=== PATIENT | female | born 1995 | race Caucasian/White ===

== ENCOUNTER 2024-06-06 16:08 | Emergency (ER) | payer OTHER ==
[2024-06-06 16:54] LABS: Specific Gravity 1.008 (1.005-1.030)
[2024-06-06 16:56] LABS: Specific Gravity 1.008 (1.005-1.030); Sqamous Epithelial <5 /HPF (None Seen); Urine Bacteria None Seen /HPF (<20); Urine Bilirubin NEGATIVE (Negative); Urine Blood Negative (Negative); Urine Clarity Clear (Clear); Urine Color Colorless (Yellow); Urine Culture Reflex Order NOT NEEDED; Urine Glucose NEGATIVE (Negative); Urine Ketones NEGATIVE (Negative); Urine Microscopic Reflex YN ORDER UMIC; Urine Mucus Slight /HPF (None Seen); Urine Nitrite NEGATIVE (Negative); Urine Protein NEGATIVE (Negative); Urine RBC <5 /HPF (None Seen); Urine Urobilinogen Normal (Normal); Urine WBC <5 /HPF (<5)
--- NOTE | 2024-06-06 17:06 | RAD REPORT ---
EXAM DESCRIPTION: US - 1St Trimest Single 1St Fetus - 06/06/2024 4:55 pm CLINICAL HISTORY: ABD CRAMPING, COMPARISON: No comparisons FINDINGS: A single gestational sac is seen within the uterus. The shape of the sac is within normal limits for gestational age. Within the sac is a single pole with crown-rump length of 4.6 cm, c orrelating to estimated gestational age of 11 weeks 3 days. Estimated date of delivery is 12/21/2014. Heart rate is 163 BPM. Anterior placenta noted. Nonvisualized ovaries. Adnexae gross unremarkable. IMPRESSION: Single live early intrauterine gestation with estimated gestational age of 11 weeks 3 da ys, SABA 12/21/2024. No acute abnormality is seen.
--- NOTE | 2024-06-06 17:06 | RAD REPORT ---
EXAM DESCRIPTION: US - Renal Ultrasound-Limited - 06/06/2024 4:55 pm CLINICAL HISTORY: left flank pain, kidney eval;Lower back pain COMPARISON: No comparisons FINDINGS: The right kidney was not requested imaging. The left kidney measures 11.8 x 5.4 x 5.2 cm. No hydronephrosis, focal mass or perinephric fluid. The urinary bladder is incompletely distended without gross abnormality seen. IMPRESSION: Negative left kidney sonogram.
[2024-06-06 18:06] LABS: Absolute Basophils 0.1 K/uL (0-0.5); Absolute Eosinophils 0.1 K/uL (0-0.5); Absolute Lymphocytes (CBC) 1.8 K/uL (0.7-4.9); Absolute Monocytes 0.6 K/uL (0.1-1.3); Absolute Neutrophil 10.8 K/uL (1.8-8.0); Basophils % 0.5 % (0-1.3); Eosinophils % 0.6 % (0-4.4); Hemoglobin 12.5 g/dL (12.0-15.0); Lymphocytes % 13.3 % (15.3-44.8); MCHC 32.9 g/dL (32.0-36.0); MCV 75.9 fL (80-100); MPV 8.3 fL (7.6-11.3); Monocytes % 4.6 % (3.3-12.3); Platelets 262 thou/uL (152-406); Red Cell Distribution Width 17.4 % (12.1-15.2)
[2024-06-06 18:14] LABS: Anion Gap 9.4 mEq/L (5.0-15.0); Potassium 3.4 mEq/L (3.5-5.1)
--- NOTE | 2024-06-06 19:10 | EDPHYS ---
Physician Documentation [facility] Name: Neyda Richards Age: 28 yrs Sex: Female : 1995 Arrival Date: 06/06/2024 Time: 16:08 Bed 18 Private MD: ED Physician Chris Burnett HPI: 06/06 16:35 This 28 yrs old Female presents to ER via Ambulatory with complaints of Low Back Pain. sb4 16:35 The patient presents to the emergency department with urinary symptoms, urinary sb4 retention. The estimated gestational age is 12 weeks. course: care: private OB physician, Leakage of Fluid: none appreciated, Ultrasound: the patient had an ultrasound, which was normal, Risk/complications: no obvious risks or complications are appreciated. patient states she woke up from a nap this afternoon, went to the bathroom, had a sharp pain in low back and felt she was unable to fully empty her bladder. states the pain in her back has improved but still wanted to be checked. denies any burning with urination, foul smelling urine, dark urine, abdominal cramping, vaginal bleeding. 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 - Infectious Disease History:: Denies. - Social history:: Smoking status: Patient denies any tobacco usage or history of. ROS: 16:35 Constitutional: Negative for fever, chills, and weight loss, sb4 16:35 : Positive for flank pain, small amounts, 16:35 All other systems are negative, Exam: 16:35 Constitutional: This is a well developed, well nourished patient who is awake, alert, sb4 and in no acute distress. Head/Face: Normocephalic, atraumatic. Eyes: Extra-ocular motions intact. Periorbital areas with no swelling, redness, or edema. ENT: Mucous membranes moist. Cardiovascular: Regular rate and rhythm with a normal S1 and S2. Respiratory: Lungs have equal breath sounds bilaterally, clear to auscultation and percussion. No rales, rhonchi or wheezes noted. No increased work of breathing, no retractions or nasal flaring. Abdomen/GI: Soft, non-tender, no distension. Skin: Warm, dry with normal turgor. Normal color with no rashes, no lesions, and no evidence of cellulitis. 16:35 Back: CVA tenderness, that is moderate, is noted on the left, Vital Signs: 16:15 BP 135 / 77; Pulse 93; Resp 16; Temp 97.8; Pulse Ox 100% ; Weight 102.51 kg; Height 5 ll1 ft. 9 in. ; Pain 5/10; 19:26 BP 132 / 74; Pulse 88; Resp 17; Temp 97.8; Pulse Ox 100% ; cp4 16:15 Body Mass Index 33.37 (102.51 kg, 175.26 cm) ll1 16:15 Pain Scale: Adult ll1 MDM: 16:16 Patient medically screened. sb4 19:44 Data reviewed: vital signs, nurses notes, lab test result(s), radiologic studies, and sb4 as a result, I will discharge patient. Counseling: I had a detailed discussion with the patient and/or guardian regarding the historical points, exam findings, and any diagnostic results supporting the discharge/admit diagnosis, lab results, radiology results, the need for outpatient follow up, an OB/Gyne specialist, to return to the emergency department if symptoms worsen or persist or if there are any questions or concerns that arise at home. 06/06 16:26 Order name: Basic Metabolic Panel; Complete Time: 18:17 sb4 06/06 16:26 Order name: CBC with Diff; Complete Time: 18:12 sb4 06/06 16:26 Order name: Test, Urine; Complete Time: 17:04 sb4 06/06 16:26 Order name: Urinalysis w/ reflexes; Complete Time: 17:04 sb4 06/06 16:26 Order name: US Rp Exam Limited sb4 06/06 16:57 Order name: 1St Trimest Single 1St Fetus EDDC 06/06 16:26 Order name: IV Saline Lock; Complete Time: 18:31 sb4 06/06 16:26 Order name: Labs collected and sent; Complete Time: 18:31 sb4 Administered Medications: No medications were administered Disposition: 20:03 Co-signature as Attending Physician, Chris Burnett MD I reviewed the patient's care rn provided by the Advanced Practice Provider and agree with the diagnosis and treatment plan. Disposition Summary: 06/06/24 19:09 Discharge Ordered Notes: Location: Home sb4 Problem: new sb4 Symptoms: have improved sb4 Condition: Stable sb4 Diagnosis - Low back pain sb4 - 12 weeks gestation of sb4 Followup: sb4 - With: Private Physician - When: 2 - 3 days - Reason: Recheck today's complaints, Re-evaluation by your physician Discharge Instructions: - Discharge Summary Sheet sb4 - Back Pain in sb4 Forms: - Patient Portal Instructions sb4 - Leadership Thank You Letter sb4 Signatures: Dispatcher [employer] Chris Jc MD MD rn Lewis, Lynsay, RN RN ll1 Valerie Saavedra, PA-C PA-C sb4 Karolina Adler cp4 Corrections: (The following items were deleted from the chart) 16:57 16:26 OB Limited+US.RAD.BRZ ordered. MORE AGUERO
--- NOTE | 2024-06-06 19:10 | ER ---
Nurse's Notes [facility] Name: Neyda Richards Age: 28 yrs Sex: Female : 1995 Arrival Date: 06/06/2024 Time: 16:08 Bed 18 Private MD: Diagnosis: Low back pain;12 weeks gestation of Presentation: 06/06 16:15 Chief complaint: Patient states: Low back pain started after taking a nap today. ll1 Couldn't empty bladder fully, nausea, and near syncope feeling . 12 weeks G2, P0. Coronavirus screen: Client denies travel out of the [place] in the last 14 days. At this time, the client does not indicate any symptoms associated with coronavirus-19. Ebola Screen: Patient denies travel to an Ebola-affected area in the 21 days before illness onset. Initial Sepsis Screen: Does the patient meet any 2 criteria? No. Patient's initial sepsis screen is negative. Does the patient have a suspected source of infection? No. Patient's initial sepsis screen is negative. Risk Assessment: Do you want to hurt yourself or someone else? Patient reports no desire to harm self or others. Onset of symptoms was June 06, 2024. 16:15 Method Of Arrival: Ambulatory ll1 16:15 Acuity: RIKA 3 ll1 Triage Assessment: 16:18 General: Appears uncomfortable, Behavior is calm, cooperative, appropriate for age. ll1 General: Reports 12 weeks . Pain: Complains of pain in L back Pain currently is 5 out of 10 on a pain scale. Neuro: Reports a syncopal episode weakness. : Reports couldn't empty bladder fully. Musculoskeletal: Reports pain in L lower back. 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 - Infectious Disease History:: Denies. - Social history:: Smoking status: Patient denies any tobacco usage or history of. Screenin:47 [facility] ED Fall Risk Assessment (Adult) History of falling in the last 3 months, kc6 including since admission No falls in past 3 months (0 pts) Confusion or Disorientation No (0 pts) Intoxicated or Sedated No (0 pts) Impaired Gait No (0 pts) Mobility Assist Device Used No (0 pt) Altered Elimination No (0 pt) Score/Fall Risk Level 0 - 2 = Low Risk Oriented to surroundings. Abuse screen: Denies threats or abuse. Denies injuries from another. Nutritional screening: No deficits noted. Tuberculosis screening: No symptoms or risk factors identified. Assessment: 16:47 General: Appears in no apparent distress. comfortable, well groomed, well developed, kc6 Behavior is calm, cooperative, appropriate for age. Pain: Complains of pain in back. Neuro: Level of Consciousness is awake, alert, obeys commands, Oriented to person, place, time, situation, Appropriate for age Reports dizziness. Cardiovascular: Capillary refill < 3 seconds. Respiratory: Airway is patent Trachea midline Respiratory effort is even, unlabored, Respiratory pattern is regular, symmetrical. GI: Reports nausea, Patient currently denies abdominal pain, diarrhea, vomiting. : Urine is clear, Reports feeling like she can't empty her bladder fully. EENT: No signs and/or symptoms were reported regarding the EENT system. Derm: No signs and/or symptoms reported regarding the dermatologic system. Skin is intact, is healthy with good turgor, Skin is dry, Skin is pale, Skin temperature is warm. Musculoskeletal: No signs and/or symptoms reported regarding the musculoskeletal system. Circulation, motion, and sensation intact. Capillary refill < 3 seconds, Range of motion: intact in all extremities. 17:47 Reassessment: Patient appears in no apparent distress at this time. No changes from kc6 previously documented assessment. Patient and/or family updated on plan of care and expected duration. Pain level reassessed. Patient is alert, oriented x 3, equal unlabored respirations, skin warm/dry/pink. 18:35 Reassessment: Patient appears in no apparent distress at this time. No changes from kc6 previously documented assessment. Patient and/or family updated on plan of care and expected duration. Pain level reassessed. Patient is alert, oriented x 3, equal unlabored respirations, skin warm/dry/pink. Vital Signs: 16:15 BP 135 / 77; Pulse 93; Resp 16; Temp 97.8; Pulse Ox 100% ; Weight 102.51 kg; Height 5 ll1 ft. 9 in. ; Pain 5/10; 19:26 BP 132 / 74; Pulse 88; Resp 17; Temp 97.8; Pulse Ox 100% ; cp4 16:15 Body Mass Index 33.37 (102.51 kg, 175.26 cm) ll1 16:15 Pain Scale: Adult ll1 ED Course: 16:14 Patient arrived in ED. ra3 16:14 Arm band placed on. ll1 16:16 Valerie Saavedra PA-C is PHCP. sb4 16:16 Chris Burnett MD is Attending Physician. sb4 16:18 Triage completed. ll1 16:22 Lorena Stubbs, NAHUM is Primary Nurse. kc6 16:43 Test, Urine Sent. kc6 16:43 Urinalysis w/ reflexes Sent. kc6 16:47 Patient has correct armband on for positive identification. Bed in low position. Call kc6 light in reach. Side rails up X 1. Adult w/ patient. Pulse ox on. NIBP on. Door closed. Noise minimized. Lights dimmed. Warm blanket given. Pillow given. 16:57 US Rp Exam Limited In Process Unspecified. EDMS 16:57 1St Trimest Single 1St Fetus In Process Unspecified. EDMS 17:32 Missed attempt(s): 22 gauge in left antecubital area. Missed attempt(s): 20 gauge in kc6 left upper arm. 17:47 Initial lab(s) drawn, by nj, sent to lab. Inserted saline lock: 24 gauge in left mb9 antecubital area, using aseptic technique. Blood collected. Flushed with 10 mL NS. 19:27 Provided Education on: back pain in . cp4 19:27 No provider procedures requiring assistance completed. intact, bleeding controlled, No cp4 redness/swelling at site. Pressure dressing applied. Administered Medications: No medications were administered Medication: 19:27 VIS not applicable for this client. cp4 Outcome: 19:09 Discharge ordered by . sb4 19:27 Discharged to home ambulatory, cp4 19:27 Condition: stable 19:27 Discharge instructions given to patient, Instructed on discharge instructions, follow up and referral plans. Demonstrated understanding of instructions, follow-up care, 19:30 Patient left the ED. cp4 Signatures: Dispatcher [employer] Peter Harper RN RN ll1 Lorena Stubbs RN RN kc6 Valerie Saavedra PA-C PA-C sb4 Pablito, Linda Aaron RN RN mb9 Karolina Adler cp4 Hailey Alba ra3
[2024-06-06 20:17] VITALS: TEMP 97.8; O2SAT 100
[2024-06-06 20:18] VITALS: BP 132/74
== END 2024-06-06 19:30 | disposition home or self-care (01) ==
LOC: ER 16:08
DX: O26.891 Other specified pregnancy related conditions, first trimester (principal); M54.50 Low back pain, unspecified; Z3A.12 12 weeks gestation of pregnancy
CPT/HCPCS: 36415; 76775; 76801; 80048; 81001; 81025; 85025

== ENCOUNTER 2024-06-26 00:50 | Emergency (ER) | payer OTHER ==
--- OUTSIDE RECORDS SUMMARY | 2024-06-26 00:52 | XMS REPORT | Continuity of Care Document ---
Author Name Unknown Address [address] [place] [address] [facility] Address [address] [place] [address] Care Team Providers Care Stocklayer Name Role Phone [id number] Attending Clinician Unavailable PAT LOIAZA Attending Clinician Unavailable ZHAO TRAN Attending Clinician Unavailable [id number] Attending Clinician Unavailable MD AVELINA Attending Clinician Unavailab le [id number] Attending Clinician Unavailable Payers Payer Name Policy Type Policy Number Effective Date Expirati on Date Source [facility] OTIS HERNANDEZ COPAY FOCUS 9 [id number] 2024 00:00:00 Problems Condition Name Condition Details Condition Category Status Onset Date Resolution Date Last Treatment Date Treating Clinician Comments Source Encounter for supervisio n of other normal , first trimester ([facility]) Encounter for supervisio n of other normal , first trimester ([facility]) Disease Active 8-08 00:00: 00 Overview: Formattin g of this note might be different from the original. - h/o SAb x 1- support person: Mahin- sex of fetus:- pedi: Katarzyna vieira Allergies, Adverse Reactions, Alerts Allergy Name Allergy Type Status Severity Reaction(s) Onset Date Inactive Date Treating Clinician Comments Source Sulfamet hoxazole -Trimeth oprim Drug Allergy Active Hives 7-15 00:00: 00 Katarzyna vieira Tomato Propensi ty to adverse reaction s Active Nausea and Vomiting 2024-0 7-15 00:00: 00 Katarzyna Zavalaa l Social History Social Habit Start Date Stop Date Quantity Comments Source ASSERTION 2024-03-28 00:00:00 Katarzyna Tucker - External Sexual orientation Sergey jay Caitlin - External Alcoholic beverage intake 2024-06-08 00:00:00 2024-06-08 00:00:00 Lifetime non-drinker (finding) Katarzyna Tucker - External Tobacco use and exposure 2024-05-10 00:00:00 2024-05-10 00:00:00 Smokeless tobacco non-user Katarzyna Tucker - External History of Social function 2024-05-10 00:00:00 2024-05-10 00:00:00 Katarzyna Tucker - External Education 2024-05-10 00:00:00 2024-05-10 00:00:00 22 Katarzyna Tucker - External Sex [birth year] at 1995 00:00:00 1995 00:00:00 Katarzyna Tucker - External Smoking Status Start Date Stop Date Source Never smoked tobacco Katarzyna Tucker - External Medications Ordered Medication Name Filled Medication Name Start Date Stop Date Current Medication? Ordering Clinician Indication Dosage Frequency Signature (SIG) Comments Components Source Vit-Fe Fumarate-FA ( VITAMINS OR) 06-08 13:45: 54 Yes Take by mouth. Katarzyna Zavalaa l Vit-Fe Fumarate-FA ( VITAMINS OR) 05-17 14:29: 04 Yes Take by mouth. Katarzyna Zavalaa l Vit-Fe Fumarate-FA ( VITAMINS OR) 05-10 10:48: 21 Yes Take by mouth. Katarzyna Stout Externa l Vital Signs Vital Name Observation Time Observation Value Comments S ource Systolic blood pressure 2024-06-08 18:51:00 126 mm[Hg] Katarzyna Hidalgo ld - External Diastolic blood pressure 2024-06-08 18:51:00 70 mm[Hg] Katarzyna Hidalgo ld - External Heart rate 2024-06-08 18:51:00 80 /min Hebert Tucker - External Body weight 2024-06-08 18:51:00 102.694 kg Shasha ey Seybold - External BMI 2024-06-08 18:51:00 33.43 kg/m2 Shasha ey Seybold - External Systolic blood pressure 2024-05-17 20:24:00 116 mm[Hg] Katarzyna Vasquezo ld - External Diastolic blood pressure 2024-05-17 20:24:00 72 mm[Hg] Katarzyna Vasquezo ld - External Heart rate 2024-05-17 20:24:00 78 /min Kelse y Seybold - External Body weight 2024-05-17 20:24:00 102.059 kg Shasha ey Seybold - External BMI 2024-05-17 20:24:00 33.23 kg/m2 Shasha ey Seybold - External Body height 2024-05-10 16:16:00 175.3 cm Shasha ey Seybold - External Encounters Start Date/Time End Date/Time Encounter Type Ad[facility] Encounter ID Source 2024-10-05 10:00:00 2024-10-05 10:00:00 Outpatient [id number] KATARZYNA COLÓN [id number] [facility] 2024-07-05 09:45:00 2024-07-05 09:45:00 Outpatient PAT LOAIZA [id number] Katarzyna [facility] 2024-06-26 00:00:00 2024-06-26 00:00:00 Outpatient ZHAO TRAN [id number] [facility] 2024-06-08 14:45:00 2024-06-08 14:45:00 Outpatient JOVANNY COLÓN [id number] [facility] 2024-06-08 14:00:00 2024-06-08 14:00:00 Outpatient PAT LOAIZA [id number] Katarzyna yb[facility] 2024-05-17 14:30:00 2024-05-17 14:30:00 Outpatient PAT LOAIZA [id number] [facility] 2024-05-17 14:25:00 2024-05-17 14:25:00 Outpatient KATARZYNA COLÓN [id number] Katarzyna ybkevin 2024-05-17 00:00:00 2024-05-17 00:00:00 Outpatient MD KATARZYNA IRIZARRY [id number] [facility] 2024-05-10 16:35:00 2024-05-10 16:35:00 Outpatient LAB90 KATARYZNA COLÓN [id number] [facility] 2024-05-10 11:00:00 2024-05-10 11:00:00 Outpatient [id number] KATARZYNA COLÓN [id number] [facility] 2024-05-10 00:00:00 2024-05-10 00:00:00 Outpatient KATARZYNA COLÓN [id number] [facility] 2024-05-10 00:00:00 2024-05-10 00:00:00 Outpatient KATARZYNA COLÓN [id number] [facility] 2024-05-10 00:00:00 2024-05-10 00:00:00 Outpatient KATARZYNA COLÓN [id number] [facility] 2024-05-03 15:45:00 2024-05-03 15:45:00 Outpatient KATARZYNA COLÓN [id number] [facility] 2024-04-30 00:00:00 2024-04-30 00:00:00 Outpatient PAT LOAIZA [id number] Katarzyna [facility] 2024-04-24 15:55:00 2024-04-24 15:55:00 Outpatient LAB90 KATARZYNA COLÓN [id number] [facility] 2024-04-23 00:00:00 2024-04-23 00:00:00 Outpatient PAT LOAIZA [id number] Katarzyna [facility]
[2024-06-26 01:55] LABS: PT Prothrombin Time 10.4 SECONDS (9.4-12.5); PTT, Activated Partial Thromb 34.6 SECONDS (24.3-36.9); Protime INR 0.93
[2024-06-26 01:57] LABS: Specific Gravity 1.011 (1.005-1.030); Sqamous Epithelial <5 /HPF (None Seen); Urine Bacteria <20 /HPF (<20); Urine Bilirubin NEGATIVE (Negative); Urine Blood Negative (Negative); Urine Clarity Turbid (Clear); Urine Color Colorless (Yellow); Urine Culture Reflex Order NOT NEEDED; Urine Glucose NEGATIVE (Negative); Urine Ketones NEGATIVE (Negative); Urine Microscopic Reflex YN ORDER UMIC; Urine Mucus Slight /HPF (None Seen); Urine Nitrite NEGATIVE (Negative); Urine Protein NEGATIVE (Negative); Urine RBC None Seen /HPF (None Seen); Urine Urobilinogen Normal (Normal); Urine WBC <5 /HPF (<5); Urine pH 6.5 (5.0-7.0)
[2024-06-26 01:59] LABS: Absolute Basophils 0.1 K/uL (0-0.5); Absolute Eosinophils 0.1 K/uL (0-0.5); Absolute Lymphocytes (CBC) 2.5 K/uL (0.7-4.9); Absolute Monocytes 0.6 K/uL (0.1-1.3); Absolute Neutrophil 10.5 K/uL (1.8-8.0); Basophils % 0.4 % (0-1.3); Eosinophils % 1.1 % (0-4.4); Hematocrit 35.8 % (36.0-45.0); Hemoglobin 11.7 g/dL (12.0-15.0); MCH 25.1 pg (27.0-35.0); MCHC 32.9 g/dL (32.0-36.0); MCV 76.5 fL (80-100); MPV 8.7 fL (7.6-11.3); Monocytes % 4.6 % (3.3-12.3); Neutrophils % 75.9 % (41.7-73.7); Platelets 246 thou/uL (152-406); RBC Red Blood Cell Count 4.67 M/uL (3.86-4.86); Red Cell Distribution Width 17.8 % (12.1-15.2)
[2024-06-26 02:03] LABS: ALT/SGPT 25 U/L (13-56); AST/SGOT 11 U/L (15-37); Albumin 3.3 g/dL (3.4-5.0); Albumin/Globulin Ratio 0.9 (1.1-1.8); Alkaline Phosphatase 67 U/L (45-117); Anion Gap 12.6 mEq/L (5.0-15.0); BUN Blood Urea Nitrogen 10 mg/dL (7-18); Bicarbonate 21 mEq/L (21-32); Globulin 3.6 g/dL (2.3-3.5); Glomerular Filtration Rate 123 ml/min (=/>90); Glucose Level 93 mg/dL (74-106); Magnesium 1.8 mg/dL (1.6-2.4); Potassium 3.6 mEq/L (3.5-5.1); Protein, Total 6.9 g/dL (6.4-8.2); Sodium Level 137 mEq/L (136-145); Troponin High Sensitivity 5.6 pg/mL (<58.9)
[2024-06-26 02:07] LABS: Bilirubin Direct < 0.2 mg/dL (0-0.2); Bilirubin Total < 0.2 mg/dL (0.2-1.0)
[2024-06-26 02:26] LABS: Specific Gravity 1.011 (1.005-1.030)
[2024-06-26] MEDS ORDERED: NA CHLORIDE 0.9% 2,000 ML ONE (05:27)
[2024-06-26] MEDS ORDERED: ONDANSETRON 4 MG/2 ML VIAL ONE (05:27)
--- NOTE | 2024-06-26 06:55 | ER ---
Nurse's Notes [facility] Name: Neyda Richards Age: 28 yrs Sex: Female : 1995 Arrival Date: 06/26/2024 Time: 00:50 Bed 8 Private MD: Diagnosis: Dehydration;Vomiting;Acute vomiting, Marly-Gamez tear, at 14 weeks 6 days EGA, acute gastroenteritis Presentation: 06/26 01:00 Chief complaint: Patient states: episodic dizziness x 2 months. Pt reports she had a ss syncopal episode last week. Pt called her PCP sabra after her vomit had a few drops of dark red blood in it and told her to come to the ER to be evaluated since she is . Coronavirus screen: Client denies travel out of the [place] in the last 14 days. Ebola Screen: Patient denies exposure to infectious person. Patient denies travel to an Ebola-affected area in the 21 days before illness onset. Initial Sepsis Screen: Does the patient meet any 2 criteria? No. Patient's initial sepsis screen is negative. Does the patient have a suspected source of infection? No. Patient's initial sepsis screen is negative. Risk Assessment: Do you want to hurt yourself or someone else? Patient reports no desire to harm self or others. Onset of symptoms is unknown. 01:00 Method Of Arrival: Ambulatory ss 01:00 Acuity: RIKA 3 ss Triage Assessment: 07:01 General: Appears in no apparent distress. comfortable, Behavior is calm, cooperative, bm8 appropriate for age. 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 - Infectious Disease History:: Denies. - Social history:: Smoking status: Patient denies any tobacco usage or history of. Screenin:46 [facility] ED Fall Risk Assessment (Adult) History of falling in the last 3 months, bm8 including since admission No falls in past 3 months (0 pts) Confusion or Disorientation No (0 pts) Intoxicated or Sedated No (0 pts) Impaired Gait No (0 pts) Mobility Assist Device Used No (0 pt) Altered Elimination No (0 pt) Score/Fall Risk Level 0 - 2 = Low Risk Oriented to surroundings, Maintained a safe environment, Educated pt \T\ family on fall prevention, incl call for assistance when getting out of bed, Provided non-skid footwear, Hourly rounding (assess needs \T\ fall precautionary measures) done, Used ambulatory aids as needed (educated on \T\ assisted with), Used gait belt as appropriate. Abuse screen: Denies threats or abuse. Nutritional screening: No deficits noted. Tuberculosis screening: No symptoms or risk factors identified. Assessment: 03:10 Reassessment: Patient appears in no apparent distress at this time. Patient and/or bm8 family updated on plan of care and expected duration. Pain level reassessed. Patient is alert, oriented x 3, equal unlabored respirations, skin warm/dry/pink. Patient denies pain at this time. Patient states feeling better. Patient states symptoms have improved. Pain: Denies pain. Cardiovascular: No deficits noted. Heart tones S1 S2 present Capillary refill < 3 seconds Patient's skin is warm and dry. Rhythm is sinus rhythm. GI: Abdomen is round distended, Patient currently denies nausea. 04:17 Reassessment: Patient appears in no apparent distress at this time. No changes from bm8 previously documented assessment. Patient and/or family updated on plan of care and expected duration. Pain level reassessed. Patient is alert, oriented x 3, equal unlabored respirations, skin warm/dry/pink. 06:48 Reassessment: Patient appears in no apparent distress at this time. Patient and/or bm8 family updated on plan of care and expected duration. Pain level reassessed. Patient is alert, oriented x 3, equal unlabored respirations, skin warm/dry/pink. pt is resting with eyes closed breathing is even unlabored with symmetrical rise and fall of chest. denies pain or nausea Patient denies pain at this time. Patient states feeling better. Patient states symptoms have improved. Vital Signs: 01:00 BP 114 / 76; Pulse 93; Resp 15; Temp 98.4(O); Pulse Ox 100% on R/A; Weight 102.51 kg; ss Height 5 ft. 9 in. ; Pain 0/10; 01:53 BP 90 / 64 Supine; Pulse 84; Resp 16; Pulse Ox 99% ; al5 01:54 BP 114 / 70 Sitting; Pulse 90; Resp 16; Pulse Ox 100% on R/A; al5 01:55 BP 124 / 84 Standing; Pulse 94; Resp 16; Pulse Ox 100% on R/A; al5 03:10 BP 116 / 61; Pulse 83; Resp 24; Temp 98.4; Pulse Ox 100% ; Pain 0/10; bm8 04:17 BP 119 / 62; Pulse 98; Resp 18; Temp 98.4; Pulse Ox 100% ; Pain 0/10; bm8 06:48 BP 113 / 60; Pulse 78; Resp 19; Temp 98.4; Pulse Ox 100% on R/A; Pain 0/10; bm8 01:00 Body Mass Index 33.37 (102.51 kg, 175.26 cm) ss 01:00 Pain Scale: Adult ss 03:10 Pain Scale: Adult bm8 04:17 Pain Scale: Adult bm8 06:48 Pain Scale: Adult bm8 Chelsie Coma Score: 03:10 Eye Response: spontaneous(4). Motor Response: obeys commands(6). Verbal Response: bm8 oriented(5). Total: 15. 04:17 Eye Response: spontaneous(4). Motor Response: obeys commands(6). Verbal Response: bm8 oriented(5). Total: 15. 06:48 Eye Response: spontaneous(4). Motor Response: obeys commands(6). Verbal Response: bm8 oriented(5). Total: 15. 07:24 Eye Response: spontaneous(4). Motor Response: obeys commands(6). Verbal Response: sp4 oriented(5). Total: 15. ED Course: 00:50 Patient arrived in ED. [id number] 01:03 Triage completed. ss 01:03 Arm band placed on right wrist. ss 01:35 Nery Duncan FNP-C is PHCP. kb 01:35 Brennen Holman MD is Attending Physician. kb 01:40 Alireza Munoz, NAHUM is Primary Nurse. bm8 01:46 Patient has correct armband on for positive identification. Placed in gown. Bed in low bm8 position. Call light in reach. Side rails up X2. Adult w/ patient. Client placed on continuous cardiac and pulse oximetry monitoring. NIBP monitoring applied. bus monitor on. Pulse ox on. NIBP on. Door closed. Noise minimized. Visitors limited. Warm blanket given. Pillow given. Verbal reassurance given. Head of bed elevated. 01:46 No provider procedures requiring assistance completed. Initial lab(s) drawn, by , nieves sent to lab. Urine collected: clean catch specimen, clear, EKG done, by ED staff, reviewed by Nery WILSON. Inserted saline lock: 20 gauge in left antecubital area, using aseptic technique. Blood collected. Flushed with 10 mL NS. Patient maintains SpO2 saturation greater than 95% on room air. 02:20 US Abdomen Limited In Process Unspecified. EDMS 02:20 OB Limited In Process Unspecified. EDMS 03:13 tyler aaron provided to pt. bm8 06:48 Provided Education on: post er care. bm8 07:01 IV discontinued, intact, bleeding controlled, No redness/swelling at site. Pressure bm8 dressing applied. Administered Medications: 05:35 Drug: NS 0.9% IV 1000 ml IV at 1 bolus Per protocol; 1000 mL bolus Route: IV; Rate: 1 bm8 bolus; Site: left antecubital; 06:24 Follow up: Response: No adverse reaction; IV Status: Completed infusion; IV Intake: bm8 1000ml 05:35 Drug: Ondansetron IVP 8 mg IVP once; over 2 minutes Route: IVP; Site: left antecubital; bm8 06:24 Follow up: Response: No adverse reaction bm8 06:24 Drug: NS 0.9% IV 1000 ml IV at 1 bolus Per protocol; 1000 mL bolus Route: IV; Rate: 1 bm8 bolus; Site: left antecubital; 06:49 Follow up: Response: No adverse reaction; IV Status: Completed infusion; IV Intake: bm8 1000ml Medication: 01:46 VIS not applicable for this client. bm8 Intake: 06:24 IV: 1000ml; Total: 1000ml. bm8 06:49 IV: 1000ml; Total: 2000ml. bm8 Outcome: 06:55 Discharge ordered by . costa 07:00 Discharged to home ambulatory, bm8 07:00 Condition: stable 07:00 Discharge instructions given to patient, family, Instructed on discharge instructions, follow up and referral plans. medication usage, safety practices, Demonstrated understanding of instructions, follow-up care, 07:01 Prescriptions given X 1, bm8 07:01 Patient left the ED. bm8 Signatures: Dispatcher [employer] EDMS Nery Duncan, KATIE RILEY-Myrna Jhaveri, RN RN ss Coral [id number] Brennen Holman MD MD sp4 Alireza Munoz RN RN bm8 Charlene Jerry RN RN al5
--- NOTE | 2024-06-26 06:55 | EDPHYS ---
Physician Documentation [facility] Name: Neyda Richards Age: 28 yrs Sex: Female : 1995 Arrival Date: 06/26/2024 Time: 00:50 Bed 8 Private MD: ED Physician Brennen Holman HPI: 06/26 01:33 This 28 yrs old Female presents to ER via Ambulatory with complaints of EST 15 WKS kb GESTATION, VOMITING BLOOD. 01:34 Patient is a 28-year-old female who presents for vomiting x 1 today. States she noticed kb drops of red and was concerned that it was blood so she called Katy Tucker and was told to come in for evaluation. Patient reports she has had intermittent dizziness for 1 month and had a syncopal episode last week. Patient states she did have abdominal pain prior to vomiting that is now resolved. Denies nausea at this time. Reports she is . G1, . LMP March 20, 2024. 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 - Infectious Disease History:: Denies. - Social history:: Smoking status: Patient denies any tobacco usage or history of. ROS: 01:32 Constitutional: As per HPI kb Exam: 01:33 Constitutional: This is a well developed, well nourished patient who is awake, alert, kb and in no acute distress. Head/Face: Normocephalic, atraumatic. ENT: Moist Mucous membranes Cardiovascular: Regular rate Respiratory: Respirations even and unlabored. No increased work of breathing. Talking in full sentences Back: No spinal tenderness. No costovertebral tenderness. Full range of motion. Skin: Warm, dry with normal turgor. Normal color. MS/ Extremity: Pulses equal, no cyanosis. Neurovascular intact. Full, normal range of motion. Neuro: Awake and alert, GCS 15, oriented to person, place, time, and situation. Moves all extremities. Normal gait. 01:33 Abdomen/GI: Inspection: abdomen appears normal, Bowel sounds: normal, Palpation: soft, in all quadrants, mild abdominal tenderness, in the epigastric area, moderate abdominal tenderness, in the left lower quadrant, 07:24 ECG was reviewed by the Attending Physician. EKG at 0 149 normal sinus rhythm at the sp4 rate of 85, normal EKG Vital Signs: 01:00 BP 114 / 76; Pulse 93; Resp 15; Temp 98.4(O); Pulse Ox 100% on R/A; Weight 102.51 kg; ss Height 5 ft. 9 in. ; Pain 0/10; 01:53 BP 90 / 64 Supine; Pulse 84; Resp 16; Pulse Ox 99% ; al5 01:54 BP 114 / 70 Sitting; Pulse 90; Resp 16; Pulse Ox 100% on R/A; al5 01:55 BP 124 / 84 Standing; Pulse 94; Resp 16; Pulse Ox 100% on R/A; al5 03:10 BP 116 / 61; Pulse 83; Resp 24; Temp 98.4; Pulse Ox 100% ; Pain 0/10; bm8 04:17 BP 119 / 62; Pulse 98; Resp 18; Temp 98.4; Pulse Ox 100% ; Pain 0/10; bm8 06:48 BP 113 / 60; Pulse 78; Resp 19; Temp 98.4; Pulse Ox 100% on R/A; Pain 0/10; bm8 01:00 Body Mass Index 33.37 (102.51 kg, 175.26 cm) ss 01:00 Pain Scale: Adult ss 03:10 Pain Scale: Adult bm8 04:17 Pain Scale: Adult bm8 06:48 Pain Scale: Adult bm8 Chelsie Coma Score: 03:10 Eye Response: spontaneous(4). Motor Response: obeys commands(6). Verbal Response: bm8 oriented(5). Total: 15. 04:17 Eye Response: spontaneous(4). Motor Response: obeys commands(6). Verbal Response: bm8 oriented(5). Total: 15. 06:48 Eye Response: spontaneous(4). Motor Response: obeys commands(6). Verbal Response: bm8 oriented(5). Total: 15. 07:24 Eye Response: spontaneous(4). Motor Response: obeys commands(6). Verbal Response: sp4 oriented(5). Total: 15. MDM: 01:21 Patient medically screened. kb 01:35 Data reviewed: vital signs, nurses notes. kb 01:45 Transition of care: After a detail discussion of the patient's case, care is kb transferred to Brennen Holman MD. 05:15 ED course: EXAMINATION: US PREGNANCYLIMITED INDICATION: Female, 28 years old, ABD PAIN sp4 COMPARISON(S): None. TECHNIQUE: Limited transabdominal ultrasound evaluation of maternal and anatomic structures was performed using grayscale and color Doppler modalities. FINDINGS: UTERUS: Imaged uterine myometrium is normal. Normal appearance of the cervix. No visualized free fluid. : Fetus: Single . Heart rate measures 156 bpm. position is CEPHALIC. Placenta: Position is POSTERIOR. No evidence of previa. Amniotic fluid: Subjectively normal. OSWALDO: Not measured. BIOMETRY: FL: 1.5 cm, 14 weeks 3 days DATING: Gestational age on US today (AUA): 14 weeks 3 days, with SABA 12/22/2024. ANATOMY: Visualized structures are within normal limits. IMPRESSION: 1. Single intrauterine fetus with cardiac activity in cephalic position. 2. No evidence of gestational complication. . ED course: EXAMINATION: US ABDOMEN LIMITED INDICATION: Female, 28 years old, ABD PAIN COMPARISON(S): None. TECHNIQUE: Sonographic imaging of the gallbladder. FINDINGS: Liver: Image parenchyma is unremarkable. Hepatopetal portal venous flow. Biliary system: Echogenic 5 mm structure adherent to the anterior wall, as well as a small amount of layering sludge. Gallbladder wall thickness measures 2.7 mm. Common duct diameter measures 4 mm. Practice Business Asst reports negative sonographic Thompson's sign. Other: No visualized ascites. IMPRESSION: 1. No evidence of cholecystitis. 2. A 5 mm adherent stone or polyp is present within the gallbladder, and a small amount of sludge. No specific follow-up imaging for either finding required. . 06:47 Differential Diagnosis altered mental status, sepsis, flu. ED course: Has improved sp4 after IV hydration.. 07:24 Consideration of Admission/Observation Escalation of care including sp4 admission/observation considered. ED course: Improved after hydration and is stable for discharge home.. 06/26 01:22 Order name: Basic Metabolic Panel; Complete Time: 05:14 kb 06/26 01:22 Order name: CBC with Diff; Complete Time: 05:14 kb 06/26 01:22 Order name: Hepatic Function; Complete Time: 05:14 kb 06/26 01:22 Order name: Magnesium; Complete Time: 05:14 kb 06/26 01:22 Order name: Test, Urine; Complete Time: 05:14 kb 06/26 01:22 Order name: Protime (+inr); Complete Time: 05:14 kb 06/26 01:22 Order name: Ptt, Activated; Complete Time: 05:14 kb 06/26 01:22 Order name: Troponin High Sensitivity; Complete Time: 05:14 kb 06/26 01:22 Order name: Urinalysis w/ reflexes; Complete Time: 05:14 kb 06/26 01:34 Order name: US Abdomen Limited kb 06/26 02:20 Order name: OB Limited EDMS 06/26 01:22 Order name: EKG; Complete Time: 01:23 kb 06/26 01:22 Order name: Cardiac monitoring; Complete Time: 01:40 kb 06/26 01:22 Order name: EKG - Nurse/Tech; Complete Time: 01:56 kb 06/26 01:22 Order name: IV Saline Lock; Complete Time: 01:40 kb 06/26 01:22 Order name: Labs collected and sent; Complete Time: 01:40 kb 06/26 01:22 Order name: NPO; Complete Time: 01:40 kb 06/26 01:22 Order name: O2 Per Protocol; Complete Time: 01:40 kb 06/26 01:22 Order name: O2 Sat Monitoring; Complete Time: 01:40 kb 06/26 01:22 Order name: Orthostatics; Complete Time: 01:56 kb EC:24 Rate is 85 beats/min. Rhythm is regular, Normal Sinus Rhythm. QRS [place] is Normal. CO sp4 interval is normal. QRS interval is normal. QT interval is normal. No Q waves. T waves are Normal. No ST changes noted. Clinical impression: Normal ECG. Interpreted by me. Reviewed by me. Administered Medications: 05:35 Drug: NS 0.9% IV 1000 ml IV at 1 bolus Per protocol; 1000 mL bolus Route: IV; Rate: 1 bm8 bolus; Site: left antecubital; 06:24 Follow up: Response: No adverse reaction; IV Status: Completed infusion; IV Intake: bm8 1000ml 05:35 Drug: Ondansetron IVP 8 mg IVP once; over 2 minutes Route: IVP; Site: left antecubital; bm8 06:24 Follow up: Response: No adverse reaction bm8 06:24 Drug: NS 0.9% IV 1000 ml IV at 1 bolus Per protocol; 1000 mL bolus Route: IV; Rate: 1 bm8 bolus; Site: left antecubital; 06:49 Follow up: Response: No adverse reaction; IV Status: Completed infusion; IV Intake: bm8 1000ml Disposition: 06:50 Co-signature as Attending Physician, Brennen Holman MD I agree with the assessment sp4 and plan of care. I reviewed the patient's care provided by Advanced Practice Provider \T\ agree w/ the diagnosis \T\ care plan. I personally saw the pt \T\ performed a substantive portion of the visit, incldng all aspects of the (History/Exam/Medical Decision Making). Disposition Summary: 06/26/24 06:55 Discharge Ordered Notes: Location: Home sp4 Problem: new sp4 Symptoms: have improved sp4 Condition: Stable sp4 Diagnosis - Dehydration sp4 - Vomiting sp4 - Acute vomiting, Marly-Gamez tear, at 14 weeks 6 days EGA, acute sp4 gastroenteritis Followup: sp4 - With: Private Physician - When: 7 - 10 days - Reason: Recheck today's complaints Discharge Instructions: - Discharge Summary Sheet sp4 - Clear Liquid Diet, Adult, [id number] sp4 Forms: - Patient Portal Instructions sp4 Prescriptions: - ondansetron 8 mg Oral Tablet,disintegrating - take 1 tablet ORAL route every 8 hours PRN nausea; 30 tablet; Refills: 0, sp4 Product Selection Permitted Signatures: Dispatcher [employer] EDMS Nery Duncan, ROSEMARY-Yordy RILEY-Myrna Jhaveri, RN RN Brennen Holman MD MD sp4 Alireza Munoz RN RN bm8 Corrections: (The following items were deleted from the chart) 02:20 01:34 Transvaginal Ob+US.RAD.BRZ ordered. EDMS EDMS
[2024-06-26 07:19] VITALS: TEMP 98.4
[2024-06-26 07:31] VITALS: O2SAT 100
[2024-06-26 07:36] VITALS: BP 113/60
--- NOTE | 2024-06-26 09:30 | RAD REPORT ---
EXAMINATION: US ABDOMEN LIMITED INDICATION: Female, 28 years old, ABD PAIN COMPARISON(S): None. TECHNIQUE: Sonographic imaging of the gallbladder. FINDINGS: Liver: Image parenchyma is unremarkable. Hepatopetal portal venous flow. Biliary system: Echogenic 5 mm structure adherent to the anterior wall, as well as a small amount of layering sludge. Gallbladder wall thickness measures 2.7 mm. Common duct diameter measures 4 mm. Medical Malpractice Paralegal reports negative sonograph ic Thompson's sign. Other: No visualized ascites. IMPRESSION: 1. No evidence of cholecystitis. 2. A 5 mm adherent stone or polyp is present within the gallbladder, and a small amount of sludge. No specific follow-up imaging for either finding required. Electronically signed by: Segundo Nguyen MD 06/26/2024 03:12 AM [facility] Due to temporary technical issues with PACS / Fluency reporting system, reports are being signed by the in-house radiologist without review as a courtesy to ensure prompt reporting. The interpreting radiologist is fully responsible for the content of the report. Transcribed Date/Time: 06/26/2024 9:29 AM
--- NOTE | 2024-06-26 09:31 | RAD REPORT ---
EXAMINATION: US PREGNANCYLIMITED INDICATION: Female, 28 years old, ABD PAIN COMPARISON(S): None. TECHNIQUE: Limited transabdominal ultrasound evaluation of maternal and anatomic structures was performed using grayscale and color Doppler modalities. FINDINGS: UTERUS: Imaged uterine myometrium is normal. Normal appearance of the cervix. No visualized free fluid. : Fetus: Single . Heart rate measures 156 bpm. position is CEPHALIC. Placenta: Position is POSTERIOR. No evidence of previa. Amniotic fluid: Subjectively normal. OSWALDO: Not measured. BIOMETRY: FL: 1.5 cm, 14 weeks 3 days DATING: Gestational age on US today (AUA): 14 weeks 3 days, with SABA 12/22/2024. ANATOMY: Visualized structures are within normal limits. IMPRESSION: 1. Single intrauterine fetus with cardiac activity in cephalic position. 2. No evidence of gestational complication. Electronically signed by: Segundo Nguyen MD 06/26/2024 03:14 AM CDT RP Due to temporary technical issues with PACS / Fluency reporting system, reports are being signed by the in-house radiologist without review as a courtesy to ensure prompt reporting. The interpreting radiologist is fully responsible for the content of the report. Transcribed Date/Time: 06/26/2024 9:30 AM
--- NOTE | 2024-06-26 16:56 | EKG ---
Test Date: 2024-06-26 Test Time: 01:49:46 Family Independence Case Manager: SAFIA MEASUREMENT RESULTS: Intervals: Rate: 85 NV: 138 QRSD: 74 QT: 374 QTc: 445 [place]: P: -17 NV: 138 QRS: 73 T: 49 INTERPRETIVE STATEMENTS: Normal sinus rhythm Normal ECG No previous ECG available for comparison Electronically Signed On 06-26-24 16:54:38 CDT by Mendez Nino
== END 2024-06-26 07:01 | disposition home or self-care (01) ==
LOC: ER 00:50
DX: O99.282 Endocrine, nutritional and metabolic diseases complicating pregnancy, second trimester (principal); O99.612 Diseases of the digestive system complicating pregnancy, second trimester; K22.6 Gastro-esophageal laceration-hemorrhage syndrome; E86.0 Dehydration; K52.9 Noninfective gastroenteritis and colitis, unspecified; Z3A.14 14 weeks gestation of pregnancy
CPT/HCPCS: 93005; 85025; 81001; 80048; 36415; 83735; 81025; 85610; 80076; 85730; 84484; 76705; 76815; J2405; J7030; 96361; 96374; 99285